=== PATIENT | female | born 1985 | race Caucasian/White ===

== ENCOUNTER 2017-12-25 13:18 | Outpatient (CLI) | payer BC ==
--- NOTE | 2017-12-25 14:42 | CT ---
CTA OF THE HEAD WITHOUT AND WITH CONTRAST: COMPARISON: 03/14/12. HISTORY: Family history of intracranial aneurysm. TECHNIQUE: Multiple contiguous axial images were obtained in a CTA of the head without and with IV contrast. Th ree-D sagittal and coronal MIP reformats were performed. FINDINGS: The bilateral intracranial internal carotid arteries are normal in caliber. These branch into normal -appearing anterior middle cerebral arteries. There is no evidence of aneurysmal dilatation, focal s tenosis, or occlusion in the anterior circulation. Both vertebral arteries form a normal-appearing basilar artery. The posterior cerebral arteries and the cerebellar arteries are patent. There is no evidence of aneurysmal dilatation, focal stenosis, o r occlusion in the posterior circulation. IMPRESSION: No significant CTA abnormality of the head. POS: [facility]
== END 2017-12-25 13:19 | disposition home or self-care (01) ==
LOC: TBSIIMAG 13:18
PROVIDERS: ATTEND Neurological Surgery
DX: I67.1 Cerebral aneurysm, nonruptured (principal)
CPT/HCPCS: 70496